=== PATIENT | female | born 1950 | race Caucasian/White ===

== ENCOUNTER 2023-10-11 06:37 | Day surgery (SDC) | payer MEDICARE, OTHER, SELFPAY ==
[2023-10-11] VITALS (9 sets, daily range): BP systolic 91–173; BP diastolic 49–83; BMI 35.4
[2023-10-11] MEDS: DILAUDID 0.25 MG IV ×3 (17:11→17:40)
--- NOTE | 2023-10-11 18:10 | SUR.PHASEII ---
patient c/o pain 5-6/10 ; FLACC scale 1, able to converse freely about vacation, smiling, son called and updated, at bedside now, patient conversing, taking po fluid and crackers.
[2023-10-11] MEDS: ROXICODONE 5 MG PO (18:26)
== END 2023-10-11 19:10 | disposition home or self-care (01) ==
LOC: SDS 06:37
PROVIDERS: ATTENDING PHYSICIAN Orthopaedic Surgery Hand Surgery
DX: S52.561A Barton's fracture of right radius, initial encounter for closed fracture (principal); X58.XXXA Exposure to other specified factors, initial encounter
CPT/HCPCS: 25609; 93005; C1713